=== PATIENT | male | born 1990 | race Hispanic/Latino ===

== ENCOUNTER 2020-02-12 12:12 | Inpatient (IN) | payer SELFPAY ==
[~2020-02-12] VITALS: Ht 165.1 cm; Wt 88.9 kg
[2020-02-12 12:38] LABS: BASOPHILS % (AUTO) 0.8 % (0.0-5.0); EOSINOPHILS % (AUTO) 0.8 % (0.0-8.0); HEMATOCRIT 42.8 % (42-54); LYMPHOCYTES % (AUTO) 19.7 % (21.0-51.0); MEAN CORPUSCULAR HEMOGLOBIN 31.9 pg (27.0-33.0); MEAN CORPUSCULAR HGB CONC 33.4 g/dL (32.0-36.0); MEAN CORPUSCULAR VOLUME 95.5 fL (79-99); MONOCYTES % (AUTO) 6.6 % (3.0-13.0); PLATELET COUNT (AUTO) 348 K/uL (130-400); RED BLOOD CELL COUNT(AUTO) 4.48 MIL/uL (4.50-6.20); RED CELL DISTRIBUTION WIDTH 13.2 % (11.0-15.5); WHITE BLOOD COUNT (AUTO) 7.1 K/uL (4.8-10.8)
[2020-02-12 12:45] LABS: APPEARANCE,URINE Clear (CLEAR); BILIRUBIN,URINE Negative (NEGATIVE); COLOR,URINE Yellow (YELLOW); GLUCOSE, URINE (UA) Negative (NEGATIVE); KETONES,URINE Negative (NEGATIVE); LEUKOCYTE ESTERASE ,URINE Negative (NEGATIVE); NITRATE,URINE Negative (NEGATIVE); OCCULT BLOOD,URINE Negative (NEGATIVE); PH,URINE 5.5 (5.0-8.0); PROTEIN,URINE Negative (NEGATIVE); UROBILINOGEN,URINE 0.2 mg/dL (0.2-1.0)
[2020-02-12 13:05] LABS: ALBUMIN 4.4 g/dL (3.5-5.0); BILIRUBIN,TOTAL 0.6 mg/dL (0.2-1.0); CREATININE 0.8 mg/dL (0.5-1.5); POTASSIUM 4.4 mmol/L (3.5-5.1)
[2020-02-12] MEDS ORDERED: MAG HYDROX/AL HYDROX/SIMETH ES 30 ML SUSP UDCUP ONE (13:45)
[2020-02-12] MEDS ORDERED: LIDOCAINE HCL 2% VISCOUS 15 ML UDCUP ONE (13:45)
[2020-02-12] MEDS ORDERED: PANTOPRAZOLE 40 MG/VIAL ONE (13:45)
[2020-02-12] MEDS ORDERED: ONDANSETRON HCL 4 MG/2 ML VIAL ONE (13:45)
[2020-02-12] MEDS ORDERED: MORPHINE SULFATE 4 MG/1ML SYG ONE (13:46)
[2020-02-12] MEDS ORDERED: KETOROLAC TROMETHAMINE 30MG/ML ONE (14:32)
[2020-02-12] MEDS ORDERED: IOHEXOL-350 75 ML VIAL IV ONE (15:13)
[2020-02-12] MEDS ORDERED: DICYCLOMINE HCL 10 MG/ML 2ML AMP IM ONE (16:24)
[2020-02-12] MEDS ORDERED: ZOSYN 3.375GM+NS 50ML 50 ML IV ONE (16:38)
[2020-02-12] MEDS: SODIUM CHLORIDE 0.9% 1000ML 1,000 ML IV SCH (18:00)
[2020-02-12] MEDS ORDERED: ONDANSETRON HCL 4 MG/2 ML VIAL IV PRN (18:00)
[2020-02-12] MEDS ORDERED: LACTULOSE 20 GM/30 ML UDCUP PO PRN (18:00)
[2020-02-12] MEDS ORDERED: ACETAMINOPHEN 325 MG TAB PO PRN (18:00)
[2020-02-12] MEDS ORDERED: MORPHINE SULFATE 2 MG/ML 1ML SYG ONE (20:13)
[2020-02-13] MEDS ORDERED: MORPHINE SULFATE 2 MG/ML 1ML SYG ONE (02:02)
--- NOTE | 2020-02-13 03:30 | NUR ---
patient alert and oriented times 3. ER nurse told me that doctor clau is aware of the consult. patient has no abdominal pain at this time and is watching television.
[2020-02-13 03:53] VITALS: BP 127/53
[2020-02-13] MEDS: SODIUM CHLORIDE 0.9% 1000ML 1,000 ML IV SCH ×3 (04:00→22:57)
[2020-02-13 04:51] LABS: BASOPHILS % (AUTO) 0.9 % (0.0-5.0); EOSINOPHILS % (AUTO) 1.5 % (0.0-8.0); HEMATOCRIT 37.5 % (42-54); MEAN CORPUSCULAR HEMOGLOBIN 31.8 pg (27.0-33.0); MEAN CORPUSCULAR HGB CONC 33.1 g/dL (32.0-36.0); MEAN CORPUSCULAR VOLUME 96.2 fL (79-99); MONOCYTES % (AUTO) 9.1 % (3.0-13.0); NEUTROPHILS % (AUTO) 64.2 % (40.0-77.0); PLATELET COUNT (AUTO) 298 K/uL (130-400); RED CELL DISTRIBUTION WIDTH 13.2 % (11.0-15.5); WHITE BLOOD COUNT (AUTO) 7.9 K/uL (4.8-10.8)
[2020-02-13 05:29] LABS: ALBUMIN 3.5 g/dL (3.5-5.0); CREATININE 0.9 mg/dL (0.5-1.5); POTASSIUM 3.8 mmol/L (3.5-5.1); TOTAL PROTEIN, SERUM 6.8 g/dL (6.0-8.3)
[2020-02-13] MEDS: ENOXAPARIN SODIUM 30 MG/0.3 ML SQ SCH (08:38)
[2020-02-13] MEDS: MORPHINE SULFATE 2 MG/ML 1ML SYG IV PRN (08:39)
[2020-02-13 09:55] VITALS: BP 137/83
[2020-02-13] MEDS: ZOSYN 3.375GM+NS 50ML 50 ML IV SCH ×2 (12:39→18:57)
[2020-02-13 12:44] VITALS: BP 123/82
--- NOTE | 2020-02-13 15:17 | NUR ---
CHART CHECK COMPLETED. Pt IS AN 29 YEAR-OLD FEMALE WITH PAST MEDICAL HISTORY OF APPENDECTOMY CURRENTLY ADMITTED SECONDARY TO RIGHT UPPER QUADRANT PAIN, INTRACTABLE N&V. Pt CURRENTLY NPO. PLEASE REQUEST FORMAL SKILLED SPEECH/SWALLOW EVALUATION IF Pt PRESENTS WITH +S/S OF ASPIRATION AT MEAL TIMES SUCH COUGHING, WET VOCAL QUALITY, OR THROAT CLEAR. Addendum: 02/13/20 at [address] Amended: Links added.
--- NOTE | 2020-02-13 15:19 | NUR ---
DCP CM met with pt discussed dc plans. Pt is independent prior to admission, lives at home with mother. Denies any equipments/services. Feels safe to go back home, still drives and works, mother able to assist with transportation and needs as necessary. DC plan to home once stable. CM to continue to follow up. Addendum: 02/13/20 at 1520 by DIVYA MUÑOZ LVN CM Amended: Links added.
[2020-02-13 17:02] VITALS: BP 132/80
[2020-02-13] MEDS ORDERED: KETOROLAC TROMETHAMINE 15MG/ML IV ONE (18:30)
[2020-02-13] MEDS: KETOROLAC TROMETHAMINE 15MG/ML IV PRN (18:57)
[2020-02-13 20:45] VITALS: BP 122/62
--- NOTE | 2020-02-13 23:40 | NUR ---
patient taken for nuclear medicine twice for his hida scan. pending results
[2020-02-14] VITALS (7 sets, daily range): BP systolic 108–145; BP diastolic 49–83
[2020-02-14] MEDS: MORPHINE SULFATE 2 MG/ML 1ML SYG IV PRN (00:06)
[2020-02-14] MEDS: ZOSYN 3.375GM+NS 50ML 50 ML IV SCH ×3 (02:16→19:46)
[2020-02-14 05:10] LABS: BASOPHILS % (AUTO) 0.8 % (0.0-5.0); EOSINOPHILS % (AUTO) 2.4 % (0.0-8.0); HEMATOCRIT 36.6 % (42-54); LYMPHOCYTES % (AUTO) 20.5 % (21.0-51.0); MEAN CORPUSCULAR HEMOGLOBIN 32.2 pg (27.0-33.0); MEAN CORPUSCULAR HGB CONC 33.1 g/dL (32.0-36.0); MEAN CORPUSCULAR VOLUME 97.3 fL (79-99); MONOCYTES % (AUTO) 8.9 % (3.0-13.0); NEUTROPHILS % (AUTO) 67.2 % (40.0-77.0); PLATELET COUNT (AUTO) 267 K/uL (130-400); RED BLOOD CELL COUNT(AUTO) 3.76 MIL/uL (4.50-6.20); RED CELL DISTRIBUTION WIDTH 12.9 % (11.0-15.5); WHITE BLOOD COUNT (AUTO) 6.6 K/uL (4.8-10.8)
[2020-02-14 05:28] LABS: ALBUMIN 3.4 g/dL (3.5-5.0); BILIRUBIN,TOTAL 1.1 mg/dL (0.2-1.0); CREATININE 0.8 mg/dL (0.5-1.5); POTASSIUM 3.8 mmol/L (3.5-5.1); TOTAL PROTEIN, SERUM 6.8 g/dL (6.0-8.3)
[2020-02-14] MEDS: ENOXAPARIN SODIUM 30 MG/0.3 ML SQ SCH (08:36)
[2020-02-14] MEDS: SODIUM CHLORIDE 0.9% 1000ML 1,000 ML IV SCH (10:00)
--- NOTE | 2020-02-14 12:58 | NUR ---
PCR PCR RESULTS NEGATIVE
[2020-02-15] VITALS (23 sets, daily range): BP systolic 141–188; BP diastolic 62–106
[2020-02-15] MEDS: ZOSYN 3.375GM+NS 50ML 50 ML IV SCH ×4 (02:56→21:00)
[2020-02-15] MEDS: ENOXAPARIN SODIUM 30 MG/0.3 ML SQ SCH (03:46)
[2020-02-15] MEDS: SODIUM CHLORIDE 0.9% 1000ML 1,000 ML IV SCH (03:46)
[2020-02-15 05:55] LABS: BASOPHILS % (AUTO) 0.9 % (0.0-5.0); EOSINOPHILS % (AUTO) 3.2 % (0.0-8.0); HEMATOCRIT 37.9 % (42-54); LYMPHOCYTES % (AUTO) 25.7 % (21.0-51.0); MEAN CORPUSCULAR HEMOGLOBIN 31.8 pg (27.0-33.0); MEAN CORPUSCULAR HGB CONC 32.7 g/dL (32.0-36.0); MEAN CORPUSCULAR VOLUME 97.2 fL (79-99); MONOCYTES % (AUTO) 9.6 % (3.0-13.0); NEUTROPHILS % (AUTO) 60.4 % (40.0-77.0); PLATELET COUNT (AUTO) 281 K/uL (130-400); RED CELL DISTRIBUTION WIDTH 12.3 % (11.0-15.5); WHITE BLOOD COUNT (AUTO) 5.3 K/uL (4.8-10.8)
[2020-02-15 06:22] LABS: ALBUMIN 3.4 g/dL (3.5-5.0); BILIRUBIN,TOTAL 1.3 mg/dL (0.2-1.0); CREATININE 0.8 mg/dL (0.5-1.5); POTASSIUM 3.5 mmol/L (3.5-5.1); TOTAL PROTEIN, SERUM 6.8 g/dL (6.0-8.3)
--- NOTE | 2020-02-15 07:30 | NUR ---
ASSESSMENT PT IS AAOX 4, VS STABLE, PT NPO, PT VOICES NO PAIN AT THIS TIME.
[2020-02-15] MEDS ORDERED: POTASSIUM CHLORIDE 20MEQ/100ML 100 ML IV PRN ×2 (07:45)
[2020-02-15] MEDS ORDERED: POTASSIUM CHLORIDE 10% ELIXIR 20 MEQ/15 ML UDCUP PO PRN (07:45)
[2020-02-15] MEDS ORDERED: POTASSIUM CHLORIDE 20 MEQ ERTAB PO PRN (07:45)
--- NOTE | 2020-02-15 09:37 | NUR ---
OR PT LEFT FOR PROCEDURE LAP SHAD
[2020-02-15] MEDS ORDERED: DEXAMETHASONE SOD PHOSPHATE 10MG/ML 1ML VIAL ONE (10:12)
[2020-02-15] MEDS ORDERED: GLYCOPYRROLATE 1 MG/5 ML SYRINGE ONE (10:12)
[2020-02-15] MEDS ORDERED: ONDANSETRON HCL 4 MG/2 ML VIAL ONE (10:12)
[2020-02-15] MEDS ORDERED: LIDOCAINE PF 2% 5ML ABBOJECT ONE (10:12)
[2020-02-15] MEDS ORDERED: PROPOFOL 10 MG/ML 20ML VIAL IV ONE (10:12)
[2020-02-15] MEDS ORDERED: NEOSTIGMINE 5MG/5ML SYR IV ONE (10:12)
[2020-02-15] MEDS ORDERED: SUCCINYLCHOLINE CHLORIDE 20 MG/ML 10 ML VIAL ONE (10:12)
[2020-02-15] MEDS ORDERED: MIDAZOLAM HCL 1 MG/ML 2ML VIAL ONE (10:12)
[2020-02-15] MEDS ORDERED: FENTANYL CITRATE PF 50 MCG/1 ML 2ML VIAL ONE ×3 (10:13→12:46)
[2020-02-15] MEDS ORDERED: ROCURONIUM 10MG/1ML SYR 10 MG/ML ML ONE (10:13)
[2020-02-15] MEDS ORDERED: BUPIVACAINE/PF 0.5% 30ML VIAL ONE (12:15)
[2020-02-15] MEDS ORDERED: ESMOLOL HCL 10 MG/ML 10 ML VIAL ONE (12:52)
[2020-02-15] MEDS ORDERED: MEPERIDINE-PF 25 MG/ML SYG ONE ×2 (13:40→13:58)
[2020-02-15] MEDS ORDERED: ENALAPRILAT DIHYDRATE 1.25MG/ML 1ML VIAL IV ONE (13:46)
--- NOTE | 2020-02-15 14:43 | NUR ---
POST PROCEDURE PT CAME BY BED WITH AMBER AND LEON DANG, IN REPORT LEON DANG STATED THAT PT HAD BLADDER DISTENTION AND ONLY VOIDED 100 ML STATED HE WAS IN A LOT OF PAIN 10/10 ON PAIN SCALE. UPON ARRIVAL VS 155/103 97% HR 67. BLADDER SCAN WAS DONE SHOWED 438 ML. PT WAS HELP TO STAND UP AT SIDE OF THE BED AND WAS ABLE TO VOID 200 ML X 2 . LAST B/P WAS 182/62. WILL CONTINUE TO MONITOR. Addendum: 02/15/20 at 1600 by BOBBY GILMORE RN RN DRESSING DRY AND INTACT
--- NOTE | 2020-02-15 15:00 | NUR ---
POST OP X 2 15 MIN PT B/P 155/103, HR 67 97%, PT HAD A BLADDER SCAN WITH 438 ML
--- NOTE | 2020-02-15 15:30 | NUR ---
POST OP X 3 15MIN, PT VOIDED 150 ML B/P 155/103 PT STATES HAS PAIN /10 WILL GIVE MORPHINE ORDERED
[2020-02-15] MEDS: MORPHINE SULFATE 2 MG/ML 1ML SYG IV PRN ×2 (15:41→21:25)
--- NOTE | 2020-02-15 15:45 | NUR ---
POSTOP X4 15 MIN PAIN MED GIVEN B/P 155/85 AND PAIN IS AT 6/10 WILL CONTINUE TO MONITOR.
--- NOTE | 2020-02-15 16:00 | NUR ---
POST OP X 1 30 MIN PT IS SLEEPING COMFORTABLE VS STABLE VOIDED TOTAL OF 400 ML, WILL CONTINUE TO MONITOR
--- NOTE | 2020-02-15 17:00 | NUR ---
POST OP PT STILL C/O PAIN, CONTINUE TO VOID WILL CONTINUE TO MONITOR
[2020-02-15] MEDS ORDERED: ACETAMINOPHEN-CODEINE 300/30MG TAB PO PRN (18:00)
[2020-02-15] MEDS: LACTATED RINGERS 1000ML 1,000 ML IV SCH ×2 (18:00→18:07)
[2020-02-15] MEDS: KETOROLAC TROMETHAMINE 15MG/ML IV PRN (18:11)
--- NOTE | 2020-02-15 19:50 | NUR ---
PM Assessment Received pt s/p Neha Dias today sited in his bedside chair, LR at 100cc/hr infusing well, routine assessment done, plan of care discuss, encourage & agreed to be ambulating in the whitt ways later. I verified his issue regarding his voiding, stated he is able to void better now. Pt reminded only on clear liquids for now until further orders. Pt currently denies discomfort.
[2020-02-15] MEDS: LISINOPRIL 5 MG TABLET PO SCH (21:02)
[2020-02-16] VITALS: BP 136/83
[2020-02-16] MEDS: LACTATED RINGERS 1000ML 1,000 ML IV SCH ×4 (03:23→14:00)
[2020-02-16] MEDS: MORPHINE SULFATE 2 MG/ML 1ML SYG IV PRN (03:43)
[2020-02-16] MEDS: ZOSYN 3.375GM+NS 50ML 50 ML IV SCH ×2 (03:44→11:49)
[2020-02-16 04:00] VITALS: BP 127/70
--- NOTE | 2020-02-16 04:00 | NUR ---
Re: Incisional dressing All four puncture sites dressing change aseptically using iodine swab, staple sutures intact, cover with band aides procedure well tolerated by pt.
[2020-02-16 04:54] LABS: BASOPHILS % (AUTO) 0.3 % (0.0-5.0); EOSINOPHILS % (AUTO) 0.1 % (0.0-8.0); HEMATOCRIT 35.6 % (42-54); LYMPHOCYTES % (AUTO) 12.3 % (21.0-51.0); MEAN CORPUSCULAR HEMOGLOBIN 32.3 pg (27.0-33.0); MEAN CORPUSCULAR HGB CONC 34.3 g/dL (32.0-36.0); MEAN CORPUSCULAR VOLUME 94.2 fL (79-99); MONOCYTES % (AUTO) 9.6 % (3.0-13.0); NEUTROPHILS % (AUTO) 77.5 % (40.0-77.0); PLATELET COUNT (AUTO) 294 K/uL (130-400); RED BLOOD CELL COUNT(AUTO) 3.78 MIL/uL (4.50-6.20); WHITE BLOOD COUNT (AUTO) 9.6 K/uL (4.8-10.8)
[2020-02-16 05:14] LABS: ALBUMIN 3.6 g/dL (3.5-5.0); BILIRUBIN,TOTAL 0.9 mg/dL (0.2-1.0); CREATININE 0.8 mg/dL (0.5-1.5); POTASSIUM 4.1 mmol/L (3.5-5.1)
[2020-02-16 08:07] VITALS: BP 131/64
[2020-02-16] MEDS: ENOXAPARIN SODIUM 30 MG/0.3 ML SQ SCH (09:31)
[2020-02-16] MEDS: LISINOPRIL 5 MG TABLET PO SCH (09:32)
[2020-02-16 11:58] VITALS: BP 156/67
[2020-02-16] MEDS ORDERED: METR500T PO (13:48)
[2020-02-16] MEDS ORDERED: CEPH500B PO (13:48)
[2020-02-16] MEDS ORDERED: LISI-617 PO (13:48)
--- NOTE | 2020-02-16 15:24 | NUR ---
D/C PT IS AAOX4 VS STABLE, DRESSING IS DRY AND INTACT NO COMPLICATION UPON D/C. PT WILL F/U WITH DR. SHAIKH IN 1-2 WEEKS AND PRIMARY F/U 2-3 DAYS. PT LEFT VIA WHEELCHAIR PVT CAR.
== END 2020-02-16 15:40 | disposition home or self-care (01) | DRG 419 ==
LOC: EDH 12:12 → EDHIP 12:13 → 3CH 02-13 03:08
PROVIDERS: ADMIT Hospitalist; ATTEND Hospitalist
PROC: 0FT44ZZ Resection of Gallbladder, Percutaneous Endoscopic Approach (ICD-10-PCS; principal; 2020-02-15 12:21)
DX: K80.62 Calculus of gallbladder and bile duct with acute cholecystitis without obstruction (principal); E66.9 Obesity, unspecified; K76.0 Fatty (change of) liver, not elsewhere classified; Z20.828 Contact with and (suspected) exposure to other viral communicable diseases; Z90.49 Acquired absence of other specified parts of digestive tract; Z68.32 Body mass index [BMI] 32.0-32.9, adult
CPT/HCPCS: 36415; 74177; 76705; 78227; 80053; 81003; 82150; 83690; 85025; 87426; 93005; A9537; C9113; G0378; J0330; J0500; J1100; J1650; J1885; J2001; J2175; J2250; J2270; J2405; J2543; J2704; J2710; J3010; J3490; J7030; J7120; Q9967; U0003

== ENCOUNTER 2020-02-24 11:51 | Emergency (ER) | payer OTHER ==
[~2020-02-24 11:51] MED LIST: CEPH500B PO; LISI-617 PO; METR500T PO
== END 2020-02-24 13:16 | disposition home or self-care (01) ==
LOC: EDH 11:51
DX: Z48.02 Encounter for removal of sutures (principal); Z90.49 Acquired absence of other specified parts of digestive tract
CPT/HCPCS: 99281